=== PATIENT | female | born 1955 | race Caucasian/White ===

== ENCOUNTER 2021-03-12 04:59 | Inpatient (IN) ==
--- NOTE | 2021-02-19 11:14 | PAT Medication Instructions ---
Medication Instructions Date of Service February 19, 2021 Home Medications albuterol sulfate 1 inh INHALATION QID PRN calcium carbonate-vitamin D3 [Calcium 600 + D(3)] 1 cap PO QPM cyanocobalamin (vitamin B-12) 1,000 mcg PO QAM furosemide [Lasix] 20 mg PO QAM insulin glargine [Lantus U-100 Insulin] 25 unit SUBCUT QAM meloxicam 15 mg PO QAM metformin 1,000 mg PO BID milk thistle 1,000 mg PO BID multivitamin 1 tab PO QAM nadolol 20 mg PO QAM omeprazole 20 mg PO QAM repaglinide [Prandin] 4 mg PO BID spironolactone 50 mg PO QAM dulaglutide [Trulicity] 3 mg SUBCUT WK Continue as directed dulaglutide [Trulicity] 3 mg SUBCUT WK ASK your surgeon for instructions meloxicam 15 mg PO QAM STOP taking 2 weeks before surgery (or as soon as possible if surgery is within 2 weeks) milk thistle 1,000 mg PO BID DO NOT take the morning of surgery cyanocobalamin (vitamin B-12) 1,000 mcg PO QAM furosemide [Lasix] 20 mg PO QAM metformin 1,000 mg PO BID multivitamin 1 tab PO QAM repaglinide [Prandin] 4 mg PO BID spironolactone 50 mg PO QAM Take morning of surgery With a small sip of water, OTHERWISE NOTHING TO EAT OR DRINK AFTER MIDNIGHT: albuterol sulfate 1 inh INHALATION QID PRN (use if needed; please bring rescue inhaler with you to hospital day of surgery if possible) nadolol 20 mg PO QAM omeprazole 20 mg PO QAM Take evening before surgery albuterol sulfate 1 inh INHALATION QID PRN (if needed) calcium carbonate-vitamin D3 [Calcium 600 + D(3)] 1 cap PO QPM metformin 1,000 mg PO BID repaglinide [Prandin] 4 mg PO BID Insulin Dependent Diabetic Patients * Test your blood sugar the morning of surgery * If Blood Sugar is GREATER THAN 150, take HALF of your regular dose of: insulin glargine [Lantus U-100 Insulin] take 12 units * If Blood Sugar is LESS THAN 150, DO NOT TAKE ANY: insulin glargine [Lantus U- 100 Insulin] Other Notes If you have any questions please call us at [phone] or [phone] or [phone] or [phone]
--- NOTE | 2021-02-23 11:40 | Anesthesiology Consultation ---
Date of Service February 23, 2021 Assessment & Plan (1) Encounter for pre-operative examination: Chart Review Chart Review: Pending: Refer to Additional Notes / Consult section (pending surgeon ordered PCP clearance and preop Covid testing ) and Patient NOT seen in Pre Admission Testing Awaiting surgeon ordered PCP clearance 02/25/21- will send lab results for review. - Check BSG AM DOS Per PAT appt on 02/23/21, patient denies any recent travel. No known Covid positive contacts or Covid related symptoms. No known Covid infection in the past 90 days. Preop Covid testing 03/05/21= will await results. Educated on importance of self quarantining, social distancing and wearing mask in public both for the patient and household contacts. Teaching & Discussion Pre-Anesthesia Teaching/Discussion Notes: Instructed NPO after midnight before surgery,except medications with 15 cc of water. Medication instructions provided according to the PAT guidelines. History Surgery Operation Date: 03/12/21 07:00 Proposed Procedures p Right Total Shoulder Arthroplasty Darnell Vick M.D. Height/Weight Height: 5 ft Weight: 63.3 kg Allergies Allergy/AdvReac Type Severity Reaction Status Date / Time No Known Allergies Allergy Unknown Verified 02/11/21 13:42 Medications Home Medications Medication Instructions Recorded Confirmed Last Taken albuterol sulfate 1 inh INHALATION QID PRN 09/26/20 02/11/21 Unknown calcium carbonate-vitamin D3 1 cap PO QPM 09/26/20 02/11/21 11/19/20 [Calcium 600 + D(3)] cyanocobalamin (vitamin B-12) 1,000 mcg PO QAM 09/26/20 02/11/21 11/20/20 furosemide [Lasix] 20 mg PO QAM 09/26/20 02/11/21 11/20/20 insulin glargine [Lantus U-100 25 unit SUBCUT QAM 09/26/20 02/11/21 11/20/20 Insulin] meloxicam 15 mg PO QAM 09/26/20 02/11/21 11/20/20 metformin 1,000 mg PO BID 09/26/20 02/11/21 11/20/20 milk thistle 1,000 mg PO BID 09/26/20 02/11/21 11/20/20 08:00 multivitamin 1 tab PO QAM 09/26/20 02/11/21 11/20/20 nadolol 20 mg PO QAM 09/26/20 02/11/21 11/20/20 omeprazole 20 mg PO QAM 09/26/20 02/11/21 11/20/20 repaglinide [Prandin] 4 mg PO BID 09/26/20 02/11/21 11/20/20 08:00 spironolactone 50 mg PO QAM 09/26/20 02/11/21 11/20/20 dulaglutide [Trulicity] 3 mg SUBCUT WK 02/11/21 02/11/21 Unknown Past Medical History Medical History Allergy-induced asthma USES INHALER IN SPRING TIME Diabetes mellitus, type 2 Glucose improved GERD (gastroesophageal reflux disease) Well controlled and stable Glaucoma Hypertension Liver cirrhosis secondary to NEWBERRY Follows with liver specialist every six months- stable Exercise / Class Metabolic Activity II 4-5 Yardwork/Stairs/Walk up hill (one flight of stairs - no chest pain or SOB ) Past Family History Family History Mother Family history of diabetes mellitus Brother Family history of diabetes mellitus Sister Family history of diabetes mellitus Other No family history of adverse response to anesthesia Past Surgical History Surgical History History of cataract surgery RT/LEFT History of cholecystectomy History of colonoscopy History of esophagogastroduodenoscopy (EGD) History of hysterectomy History of repair of rotator cuff LEFT History of right hip replacement History of tooth extraction Past Anesthesia History No Hx of Anesthesia Complications and No Family Hx of Anesthesia Complications History of PONV No Hx of PONV and No Hx of Motion Sickness Social History Smoking Status: Never smoker Hx Alcohol Use: No Hx Substance Use: No Review of Systems Patient denies chest pain, shortness of breath, dyspnea on exertion, cough, wheezing, palpitations. No hx of seizures, stroke, [place], apnea/snoring. No hx of blood clots or blood transfusions Physical Exam Vital Signs VITALS BP 104/50 (manually- denies dizziness or syncope- mild fatigue- has PCP appt on 02/25/21- will follow up with PCP sooner is symptoms occur- encouraged hydration) P 85 TEMP 97.9 SP02 96% RESP 16 Constitutional no acute distress ENMT Mouth: no TMJ clicking Thyromental Distance: < 3.5 Finger Breadths (3.0) Mallampati Class: II Full upper denture Partial bottom denture Neck neck extension not limited Respiratory normal respiratory effort; no respiratory distress Auscultation: lungs clear to auscultation bilaterally; no wheezes Cardiovascular Rate/Rhythm: regular rate and regular rhythm Heart Sounds: no murmur Vessels: no carotid bruit Musculoskeletal Spine: no pain with cervical ROM Extremities: extremities normal to inspection Skin Blisters to lips from being in sun this past weekend Psychiatric Orientation: alert Testing Laboratory Results 02/23/21 11:51 02/23/21 11:51 PT 10.9 Seconds (9.0-12.0) 02/23/21 11:51 INR 1.1 (0.9-1.1) 02/23/21 11:51 APTT 23.4 Seconds (21.0-31.0) 02/23/21 11:51 Hemoglobin A1c 7.5 % (4.5-5.6) H 02/23/21 11:51 Urine Color Yellow 02/23/21 11:51 Urine Appearance Clear (Clear) 02/23/21 11:51 Urine pH 5.0 (4.5-7.5) 02/23/21 11:51 Ur Specific Rand 1.013 (1.000-1.030) 02/23/21 11:51 Urine Protein Negative (Negative) 02/23/21 11:51 Urine Glucose (UA) 1+ (Negative) H 02/23/21 11:51 Urine Ketones Negative (Negative) 02/23/21 11:51 Urine Nitrite Negative (Negative) 02/23/21 11:51 Ur Leukocyte Esterase Trace (Negative) H 02/23/21 11:51 Urine WBC (Auto) 1-5 /hpf (0-5) 02/23/21 11:51 Urine RBC (Auto) 5-10 /hpf (0-4) H 02/23/21 11:51 U Hyaline Cast (Auto) 1-5 /lpf (0-5) 02/23/21 11:51 U Epithel Cells (Auto) 10-20 /lpf (0-5) H 02/23/21 11:51 Urine Bacteria (Auto) Negative (Negative) 02/23/21 11:51 Blood Type B Positive 02/23/21 11:51 Antibody Screen NEGATIVE 02/23/21 11:51 Inform surgeon's office of blood sugar results- will leave to surgeon's discretion on how to proceed (per patient- fasting blood sugars usually 130- 150's) Electrocardiogram Date: 10/01/20 Findings: + NSR @ (69) Normal EKG. Chest X-Ray Date: 10/01/20 Findings: + NAD
[2021-02-23 12:08] LABS: Basophils # (auto) 0.03 K/uL (0-0.2); Basophils % (auto) 0.5 %; Eosinophils # (auto) 0.24 K/uL (0-0.5); Eosinophils % (auto) 3.6 %; Hematocrit (blood only) 36.7 % (37-47); Hemoglobin 12.6 g/dL (12.0-16.0); Immature Granulocytes # (auto) 0.01 K/uL (0.00-0.02); Immature Granulocytes % (auto) 0.2 %; Lymphocytes # (auto) 1.11 K/uL (1.2-3.4); Lymphocytes % (auto) 16.7 %; Mean Corpuscular Hemoglobin 30.8 pg (25-34); Mean Corpuscular Hgb Conc 34.3 g/dL (32-36); Mean Corpuscular Volume 89.7 fL (80-100); Mean Platelet Volume 10.6 fL (7.4-10.4); Monocytes # (auto) 0.55 K/uL (0.11-0.59); Monocytes % (auto) 8.3 %; Neutrophils # (auto) 4.69 K/uL (1.4-6.5); Neutrophils % (auto) 70.7 %; Platelet Count 137 K/uL (130-400); RDW Coefficient of Variation 13.5 % (11.5-14.5); RDW Standard Deviation 44.5 fL (36.4-46.3); Red Blood Count 4.09 M/uL (4.2-5.4); White Blood Count 6.63 K/uL (4.8-10.8)
[2021-02-23 12:11] LABS: Appearance Urine Clear (Clear); Bacteria Urine Automated Negative (Negative); Bilirubin Urine Negative (Negative); Blood Urine Negative (Negative); Color Urine Yellow; Glucose Urine UA 1+ (Negative); Ketones Urine Negative (Negative); Leukocyte Esterase Urine Trace (Negative); Nitrite Urine Negative (Negative); Protein Urine Negative (Negative); Specific Gravity Urine 1.013 (1.000-1.030); Urobilinogen Urine Negative (Negative)
[2021-02-23 12:21] LABS: INR 1.1 (0.9-1.1); Partial Thromboplastin Ratio 0.9; Partial Thromboplastin Time 23.4 Seconds (21.0-31.0); Prothrombin Time 10.9 Seconds (9.0-12.0)
[2021-02-23 12:50] LABS: Estimated Average Glucose 169 mg/dl; Hemoglobin A1C 7.5 % (4.5-5.6)
[2021-02-23 14:42] LABS: Albumin Level 3.5 gm/dl (3.4-5.0); BUN Creatinine Ratio 17.8 (10-20); Calcium 9.2 mg/dl (8.5-10.1); Creatinine Clr Calc Pharmacy 46.9 ml/min; Est GFR (African American) 69.7; Est GFR (Non-African American) 60.1; Potassium 3.8 mmol/L (3.5-5.1)
[2021-02-23 15:12] LABS: Beta-Hydroxybutyrate 1.59 mg/dl (0.2-2.81)
--- NOTE | 2021-03-11 12:24 | History & Physical Report ---
Date of Service March 11, 2021 Assessment & Plan (1) Right rotator cuff tear arthropathy: She again has a chronic, massive, retracted, full-thickness rotator cuff tear. This is an irrepairable rotator cuff tear, and she is developing rotator cuff tear arthropathy. I advised her again that the only viable surgical treatment option for this would be a reverse total shoulder arthroplasty. We did offer her further conservative treatment with another steroid injection, but she declined as the previous injection was minimally effective for her. Of note, she is a diabetic and her last hemoglobin A1c was 7.8, significantly improved from above 9. Advised her that she really needs to get this below 7 for surgery. We will need medical clearance. She does not have any coronary artery disease and is not on any anticoagulants. We will need to schedule her surgery for after February 28 due to her last steroid injection on December 01. We will get her set up for a blueprint CT scan for preoperative planning. Risks, benefits, and alternatives of surgery were explained in detail. The surgical procedure, as well as postoperative recovery and rehabilitation, was also explained in detail. Risks include bleeding; infection; damage to surrounding structures such as nerves, blood vessels, and tendons that run in the area; persistent pain or stiffness; hardware failure; dislocation; brachial plexus palsy; blood clots; or need for further surgery. The patient understands all of this and wishes to proceed with surgery. Preoperative workup was completed today, and informed consent was obtained. Present on Admission?: Yes History of Present Illness Chief Complaint: Right shoulder pain and weakness Primary Care Provider: Mik Rahman MD She returns today for her right shoulder chronic rotator cuff tear with rotator cuff tear arthropathy. She had acute worsening of her pain and weakness in that shoulder with a fall on November 20. I gave her a steroid injection at her last appointment on December 01. She reports that this only gave her about 2 weeks relief of her pain, with only about 50 to 60% relief of that pain. It promptly wore off, and she has had severe return of her pain and weakness. Allergies Allergy/AdvReac Type Severity Reaction Status Date / Time No Known Allergies Allergy Unknown Verified 02/11/21 13:42 Home Medications Medication Instructions Recorded Confirmed Type albuterol sulfate 1 inh INHALATION QID PRN 09/26/20 02/11/21 History calcium carbonate-vitamin D3 1 cap PO QPM 09/26/20 02/11/21 History [Calcium 600 + D(3)] cyanocobalamin (vitamin B-12) 1,000 mcg PO QAM 09/26/20 02/11/21 History furosemide [Lasix] 20 mg PO QAM 09/26/20 02/11/21 History insulin glargine [Lantus U-100 25 unit SUBCUT QAM 09/26/20 02/11/21 History Insulin] meloxicam 15 mg PO QAM 09/26/20 02/11/21 History metformin 1,000 mg PO BID 09/26/20 02/11/21 History milk thistle 1,000 mg PO BID 09/26/20 02/11/21 History multivitamin 1 tab PO QAM 09/26/20 02/11/21 History nadolol 20 mg PO QAM 09/26/20 02/11/21 History omeprazole 20 mg PO QAM 09/26/20 02/11/21 History repaglinide [Prandin] 4 mg PO BID 09/26/20 02/11/21 History spironolactone 50 mg PO QAM 09/26/20 02/11/21 History dulaglutide [Trulicity] 3 mg SUBCUT WK 02/11/21 02/11/21 History Past Med/Surg History Medical History Allergy-induced asthma USES INHALER IN SPRING TIME Diabetes mellitus, type 2 Glucose improved GERD (gastroesophageal reflux disease) Well controlled and stable Glaucoma Hypertension Liver cirrhosis secondary to [place] Follows with liver specialist every six months- stable Surgical History History of cataract surgery RT/LEFT History of cholecystectomy History of colonoscopy History of esophagogastroduodenoscopy (EGD) History of hysterectomy History of repair of rotator cuff LEFT History of right hip replacement History of tooth extraction Family History Mother Family history of diabetes mellitus Brother Family history of diabetes mellitus Sister Family history of diabetes mellitus Other No family history of adverse response to anesthesia Social History Smoking Status: Never smoker Second Hand Exposure: No; Hx Alcohol Use: No Hx Substance Use: No Preferred Language: Cameroonian Staff Assistant Required: No Beliefs That Will Affect Care: None Current Living Situation: Family Current Living Situation Comment: AND SON Feels Safe at Home: Yes Safety Concerns: Feels Safe At This Time Assistive Devices: Denture - Upper Physical Exam Physical Exam: Examination of the right shoulder reveals limitation and weakness of the supraspinatous and infraspinatous. Subscapularis strength is well maintained. She can now actively abduct up to about 80 degrees, significantly improved from 20 degrees at her last appointment. No tenderness to palpation at the acromioclavicular joint. Results & Data ([facility]) Diagnostic Findings MRI of the right shoulder from December 01 was reviewed. It shows an obvious chronic, massive, retracted rotator cuff tear involving the entire supraspinatus and subscapularis tendons, as well as the anterior infraspinatus. The tendon is retracted to the level of the glenoid rim. There is near complete fatty atrophy of the subscapularis muscle belly, and about 75% fatty atrophy of the supraspinatus muscle belly. Infraspinatus muscle looks well-maintained.
[2021-03-12] MEDS ORDERED: LR 15ML/HR IV SCH (06:00)
[2021-03-12] MEDS ORDERED: ceFAZolin 1000MG 1,000 MG/7.5 ML SYR IV SCH (06:00)
[2021-03-12] MEDS ORDERED: METOCLOPRAMIDE HCL 10 MG TABLET PO SCH (06:00)
[2021-03-12] MEDS ORDERED: CeleBREX 200 MG CAP PO SCH (06:00)
[2021-03-12] MEDS ORDERED: TRANEXAMIC ACID / 0.7% NACL 1,000 MG/100 ML BAG IV SCH (06:00)
[2021-03-12] MEDS ORDERED: dexAMETHasone 4 MG TAB PO SCH (06:00)
[2021-03-12] MEDS ORDERED: GABAPENTIN 300 MG CAP PO SCH (06:00)
[2021-03-12] MEDS ORDERED: FAMOTIDINE 20 MG TAB PO SCH (06:00)
[2021-03-12] MEDS ORDERED: ACETAMINOPHEN 500 MG TAB PO SCH (06:00)
[2021-03-12] MEDS ORDERED: BUPIVACAINE 0.5 % 5 MG/1 ML PF 10ML VIAL ONE (06:23)
[2021-03-12] MEDS ORDERED: fentaNYL citrate 100 MCG/2 ML VIAL IV PRN (06:36)
[2021-03-12] MEDS ORDERED: ONDANSETRON INJ 2 MG/ML 2 ML VIAL IV PRN ×2 (06:36→10:29)
[2021-03-12] MEDS ORDERED: ePHEDrine sulfate 50 MG/ML AMP IV PRN (06:36)
[2021-03-12] MEDS ORDERED: ATROPINE SULFATE 0.1 MG/ML 10ML SYR IV PRN (06:36)
[2021-03-12] MEDS ORDERED: MIDAZOLAM HCL 1 MG/ML 2ML VIAL ONE (06:40)
[2021-03-12] MEDS ORDERED: fentaNYL citrate 100 MCG/2 ML VIAL ONE (06:40)
[2021-03-12] MEDS ORDERED: ROPIVACAINE 0.5% 5 MG/ML 30 ML VIAL ONE (06:46)
--- NOTE | 2021-03-12 06:58 | History & Physical Bridge Note ---
Date of Service March 12, 2021 History & Physical Bridge Note I have examined the patient, reviewed the History & Physical and in the interval since the performance of the History & Physical I have noted the following changes of clinical significance: no changes noted
[2021-03-12] MEDS ORDERED: PHENYLEPHRINE HCL 10 MG/ML VIAL ONE (08:09)
[2021-03-12] MEDS ORDERED: LIDOCAINE 2% 2 ML VIAL/AMP(20MG/ML) INFIL ONE (08:09)
[2021-03-12] MEDS ORDERED: ePHEDrine sulfate 50 MG/ML SYR ONE (08:09)
[2021-03-12] MEDS ORDERED: ONDANSETRON INJ 2 MG/ML 2 ML VIAL ONE (08:09)
[2021-03-12] MEDS ORDERED: DEXAMETHASONE SOD INJ 4 MG/ML VIAL ONE (08:09)
[2021-03-12] MEDS ORDERED: PROPOFOL IV EMULSION 10 MG/ML 20 ML VIAL IV ONE (08:09)
--- NOTE | 2021-03-12 08:59 | Post Operative Brief Note ---
Immediate Post Op Note v1 Date of Surgery March 12, 2021 Pre & Post Diagnosis Operation Date: 03/12/21 07:00 Pre-Op Diagnosis: Right Shoulder Rotator Cuff Tear Arthropathy Post-Op Diagnosis: Right Shoulder Rotator Cuff Tear Arthropathy I identified the patient and participated in the time-out.: Yes Procedure Operation Date: 03/12/21 07:00 Actual Procedures p Right Total Shoulder Arthroplasty Reversre(Right) - Kd Vick M.D. Surgeon Kd Vick [facility] Secretary Juan Antonio Vargas PA-C Estimated Blood Loss 75 Findings Consistent with Post-Op Diagnosis
--- NOTE | 2021-03-12 08:59 | Operative Report ---
Post Operative Report Pre & Post Diagnosis Operation Date: 03/12/21 07:00 Pre-Op Diagnosis: Right Shoulder Rotator Cuff Tear Arthropathy Post-Op Diagnosis: Right Shoulder Rotator Cuff Tear Arthropathy I identified the patient and participated in the time-out.: Yes Procedure Operation Date: 03/12/21 07:00 Actual Procedures Right reverse Total Shoulder Arthroplasty (29398) Open biceps tenodesis (34448) - Kd Vick M.D. Surgeon Kd Vick Bicycle Technician Juan Antonio Vargas PA-C Estimated Blood Loss 75 Findings Consistent with Post-Op Diagnosis Specimens None Drains None Anesthesia Type General Regional Complications none Disposition Disposition: Recovery Room Indications Ms. Hart is a 65-year-old female with persistent right shoulder pain and weakness. History, clinical exam, and imaging were consistent with the above diagnosis. Risks, benefits, and alternatives of surgery were explained in detail. The patient understood all this and wished to proceed. Description of Procedure Components Implanted: Tornier Reverse Total Shoulder implants Perform glenoid baseplate: 25mm, 15 degree full wedge with 6.5mm central screw and 5.0mm peripheral screws Glenosphere: 36mm standard Ascend Flex humeral stem: 2B Standard length (70mm) Humeral tray: 1.5mm offset, +0mm thickness Polyethylene insert: 36mm, +6mm thickness Patient was identified in the preoperative holding area. Operative extremity was marked. Regional blockade was given by the Anesthesia Staff. Patient was then brought back to the operating room, and general anesthesia was induced without complication. Appropriate weight-based dose of Ancef was infused intravenously for antibiotic prophylaxis. The patient was then placed in the beachchair position. Right arm was then prepped and draped in a standard sterile fashion using Chlorhexidine prep. A standard deltopectoral incision was made through the skin and subcutaneous tissue. The cephalic vein was identified and retracted medially. Small branches to the deltoid were coagulated as necessary. The clavipectoral fascia was then incised and the subdeltoid space was opened. The rotator cuff was found to be deficient, and I therefore decided to perform a reverse total shoulder arthroplasty as planned preoperatively. The biceps tendon was identified within the bicipital groove and tenodesed at the superior border of the pectoralis tendon with #2 FiberWire suture. The biceps tendon was then divided proximal to the tenodesis site and the rotator interval was opened. The proximal portion of the biceps tendon was excised. The remaining subscapularis tendon was elevated subperiosteally off of the lesser tuberosity. The glenohumeral joint was then dislocated, and large osteophytes were debrided with a ronguer. The humeral head cut was then made in the appropriate inclination and version using the cutting guide. The intramedullary canal of the humerus was then opened with a canal finder. The humeral canal was then sequentially broached to the appropriate size. A protective cap was then placed on top of the humeral trial. I then turned my attention to the glenoid. The proximal stump of the biceps tendon was excised, along with the labrum circumferentially around the glenoid. The Blueprint drill guide was then positioned on the glenoid, and the guidepin was then inserted. The 15 degree angled reamer was then inserted over the guidepin and an reamed to an appropriate depth. The central screw hole was drilled, and appropriate length 6.5mm central screw was selected. The baseplate was then implanted into place according to our preoperative Blueprint plan by tightening down the central screw. A peripheral 5mm nonlocking screw was placed postero-superiorly first for additional compression of the baseplate, and then additional locking 5 mm peripheral screws were placed to complete fixation of the baseplate. Glenosphere was then impacted and secured. A trial humeral tray and insert were placed on the trial humeral stem, and a trial reduction was carried out. Once I achieved acceptable joint stability and range of motion with the trial implants, the final humeral implants were assembled on the back table and then impacted into position. I then took the shoulder through full range of motion to ensure good stability and acceptable motion. Wound was then copiously irrigated with sterile saline. Deep fascia was closed with 0 V-lock suture. Subcutaneous tissue was closed with 2-0 V-lock, and skin was closed with 3-0 V-lock. Skin was then sealed with Dermabond. Sterile dressings were then applied with a waterproof silver-impregnated dressing, and the arm was placed into a sling. The patient was awakened from anesthesia and taken to the Post Anesthesia Care Unit in stable condition. There were no immediate complications from the procedure. I was present and scrubbed for the entire procedure, with the exception of final skin closure and dressing application. Due to the complex nature of the procedure, the entire surgery was performed with the operational assistance of Juan Antonio Vargas PA-C. The anesthetic assistant, under direct supervision, was involved in the performance of all aspects of the surgical procedure including patient positioning, tissue retraction, hemostasis, wound closure, and dressing application. I attest to the content of the Intraoperative Record and any orders documented therein. Any exceptions are noted below.
--- NOTE | 2021-03-12 09:34 | XRay Report ---
XR shoulder RT min 2V routine CLINICAL HISTORY: Post shoulder surgery COMPARISON STUDY: Right shoulder 11/12/2020. FINDINGS: Status post a reverse right total shoulder arthroplasty. The hardware appears intact. No fr acture or dislocation. IMPRESSION: Status post reverse right total shoulder arthroplasty. No evidence for hardware complica tion. ACT 112: Negative or not required by law. Electronically signed by: Tahir Smith M.D. 03/12/2021 9:33 AM
--- NOTE | 2021-03-12 10:08 | Anesthesiology Progress Note ---
Date of Service March 12, 2021 Anesthesia Post Procedure Vital Signs Vital Signs: Temp Pulse Pulse Resp BP Pulse Ox 03/12/21 10:00 97.5 F L 84 14 95/51 L 97 03/12/21 09:50 84 14 97/58 L 99 03/12/21 09:40 85 16 99/56 L 100 03/12/21 09:30 91 H 20 114/52 L 100 03/12/21 09:20 87 16 104/57 L 100 03/12/21 09:17 96.8 F L 87 16 99/56 L 98 03/12/21 05:20 98.1 F 88 18 136/79 97 Transfer of Care Handoff Completed per policy Notes Mental Status: alert / awake / arousable and participated in evaluation Patient Amnestic to Procedure: Yes Nausea / Vomiting: adequately controlled Pain: adequately controlled Airway Patency, RR, SpO2: stable & adequate BP & HR: stable & adequate Hydration State: stable & adequate Anesthetic Complications: no major complications apparent and Pt Satisfied with anesthetic care
[2021-03-12] MEDS ORDERED: bisacodyL 10 MG SUPP PR PRN (10:29)
[2021-03-12] MEDS ORDERED: SODIUM CHLORIDE 0.9% 1000ML 1,000 ML IV SCH (10:29)
[2021-03-12] MEDS ORDERED: diphenhydrAMINE Capsule 25 MG CAP PO PRN (10:29)
[2021-03-12] MEDS ORDERED: ALBUTEROL HFA 8 GM INHALER INH PRN (10:29)
[2021-03-12] MEDS ORDERED: METOCLOPRAMIDE HCL INJ 5 MG/ML 2 ML VIAL IV PRN (10:29)
[2021-03-12] MEDS ORDERED: MAGNESIUM HYDROXIDE SUSP 30 ML UDC PO PRN (10:29)
[2021-03-12] MEDS ORDERED: NON-FORMULARY MEDICATION (Dulaglutide [Trulicity] 3 mg/0.5 mL Pen Injector) SQ SCH (10:29)
[2021-03-12] MEDS ORDERED: NALOXONE HCL 0.4 MG/1 ML VIAL/CARP IV PRN (10:29)
[2021-03-12] MEDS ORDERED: PHARMACY GLYCEMIC MGMT CONSULT PRN (11:31)
[2021-03-12] MEDS ORDERED: NovoLIN-N (NPH) PER UNIT CHARGE SQ SCH (12:30)
[2021-03-12] MEDS ORDERED: INSULIN GLARGINE SOLOSTAR 100 UNITS/ML 3 ML PEN SC SCH (12:30)
[2021-03-12] MEDS: INSULIN ASPART 100 UNITS/ML 3 ML PEN SC SCH ×3 (13:22→20:52)
[2021-03-12] MEDS: ACETAMINOPHEN 500 MG TAB PO SCH ×2 (13:36→18:05)
[2021-03-12] MEDS: IBUPROFEN 600 MG TAB PO SCH ×2 (15:00→20:54)
--- NOTE | 2021-03-12 15:47 | Pharmacy Report ---
Pharmacy Glycemic Short Note 2 - Date of Service March 12, 2021 - Glycemic Short BSG Results (Last 24 hours): 03/12/21 03/12/21 03/12/21 05:16 09:19 11:55 POC Glucose 114 H 119 H 200 H OUTPATIENT ANTIDIABETIC REGIMEN: * metformin 1000mh BIDM * Repaglinide 4mg BID * Trulicity 3mg SQ weekly * A1c: 7.5% ASSESSMENT: * Patient's preop blood sugar 112, post op 119 and lunchtime 200 mg/dL. They did receive dexamethasone 8mg PO in the OR. A one time order of NPH (0.25 units/kg) will be ordered today to cover the steroid effects. Will continue with Lantus home dose as well and a high stress NovoLog scale. Will add overnight checks. * Patient is tolerating a diet PLAN FOR INPATIENT GLYCEMIC CONTROL: * Hold outpatient oral diabetes medications * Basal insulin * Lantus 20 units SQ X 1 * NPH 15 units SQ today X 1 * Bolus insulin * NovoLog per scale ACHS or Q6hrs while NPO * Goal Range: Low 110 mg/dL - High 140 mg/dL * Correction Factor: 25 mg/dL/unit * Nutritional / Prandial insulin per carb ratio of 1 unit per 8 grams CHO consumed
[2021-03-12] MEDS ORDERED: metFORMIN HCL 500 MG TAB PO SCH (17:00)
[2021-03-12] MEDS: ceFAZolin 1000MG 1,000 MG/7.5 ML SYR IV SCH (17:53)
--- NOTE | 2021-03-12 18:40 | Orthopedic Progress Note ---
Date of Service March 12, 2021 Assessment & Plan (1) Right rotator cuff tear arthropathy: Postoperative day 0 status post right reverse total shoulder arthroplasty doing very well. Antibiotics x24 hours. May do active range of motion as tolerated once her nerve block wears off. No resisted elbow flexion or resisted forearm supination. Plan for likely discharge home tomorrow. Follow-up in orthopedics clinic in 10 to 14 days. Admission and Anticipated Discharge Date Admission Date: March 12, 2021 Subjective Postop check. Patient doing very well. Denies any pain in her shoulder. Eating and drinking well without any nausea or vomiting. Nerve block is just starting to wear off, with a little bit of motion in her fingertips. Physical Exam Physical Exam: Right shoulder dressings clean, dry, and intact. Results & Data ([facility]) Vital Signs (Past 12 Hours) Vital Signs Temp Pulse Pulse Resp BP Pulse Ox 03/12/21 16:12 36.9 C 87 17 100/56 L 93 03/12/21 13:35 36.8 C 86 17 91/56 L 93 03/12/21 12:36 36.8 C 92 H 17 99/61 L 90 03/12/21 11:14 36.8 C 81 16 94/57 L 97 03/12/21 10:55 36.6 C 82 14 100/62 97 03/12/21 10:25 36.4 C L 84 14 93/56 L 96 03/12/21 10:10 93 H 12 99/55 L 100 03/12/21 10:00 36.4 C L 84 14 95/51 L 97 03/12/21 09:50 84 14 97/58 L 99 03/12/21 09:40 85 16 99/56 L 100 03/12/21 09:30 91 H 20 114/52 L 100 03/12/21 09:20 87 16 104/57 L 100 03/12/21 09:17 36.0 C L 87 16 99/56 L 98
[2021-03-12] MEDS: DOCUSATE SODIUM 100 MG CAP PO SCH (20:54)
[2021-03-12] MEDS ORDERED: REPAGLINIDE 1 MG TAB PO SCH (21:00)
[2021-03-12] MEDS ORDERED: NON-FORMULARY MEDICATION (Milk Thistle 500 mg Capsule) PO SCH (21:00)
[2021-03-12] MEDS ORDERED: CALCIUM 600MG + VIT D 400 IU TAB PO SCH (21:00)
[2021-03-13] MEDS: INSULIN ASPART 100 UNITS/ML 3 ML PEN SC SCH ×4 (00:20→12:44)
[2021-03-13] MEDS: ceFAZolin 1000MG 1,000 MG/7.5 ML SYR IV SCH (00:20)
[2021-03-13] MEDS: ACETAMINOPHEN 500 MG TAB PO SCH ×3 (00:21→11:46)
[2021-03-13] MEDS: IBUPROFEN 600 MG TAB PO SCH ×2 (03:31→09:14)
[2021-03-13] MEDS: oxyCODONE HCL IR 5 MG TAB (IMMEDIATE RELEASE) PO PRN ×2 (03:31→11:41)
--- NOTE | 2021-03-13 08:06 | Orthopedic Progress Note ---
Date of Service March 13, 2021 Assessment & Plan (1) Status post reverse arthroplasty of right shoulder: Admission and Anticipated Discharge Date Admission Date: March 12, 2021 65 yo female stable POD #1 s/p right reverse TSA 1. Med management 2. DVT prophylaxis- ASA, SCDs 3. PT/OT 4. D/C planning- home w/ OPPT Subjective Pt resting in bed, pain controlled, denies complaints Physical Exam Physical Exam: Silverlon dressing in place, fingers mobile, NVI Results & Data ([facility]) Vital Signs (Past 12 Hours) Vital Signs Temp Pulse Pulse Resp BP Pulse Ox 03/13/21 07:40 36.9 C 85 13 102/60 97 03/13/21 03:30 36.6 C 85 16 108/66 97 03/12/21 23:05 36.5 C 81 16 101/59 L 94 Laboratory Results 03/13/21 03/13/21 03/13/21 Range/Units 05:15 03:28 00:02 POC Glucose 200 H 233 H (70-99) mg/dl Hepatitis C Ab Screen Pending 03/12/21 03/12/21 03/12/21 Range/Units 20:28 17:13 11:55 POC Glucose 297 H 284 H 200 H (70-99) mg/dl Hepatitis C Ab Screen 03/12/21 Range/Units 09:19 POC Glucose 119 H (70-99) mg/dl Hepatitis C Ab Screen
[2021-03-13] MEDS ORDERED: MULTIVITAMIN TAB PO SCH (09:00)
[2021-03-13] MEDS ORDERED: LANTUS PER UNIT CHARGE SQ SCH (09:00)
[2021-03-13] MEDS ORDERED: CYANOCOBALAMIN 500 MCG TABLET (VITAMIN B-12) PO SCH (09:00)
[2021-03-13] MEDS ORDERED: INSULIN GLARGINE SOLOSTAR 100 UNITS/ML 3 ML PEN SC SCH (09:00)
[2021-03-13] MEDS ORDERED: PANTOprazole 40 MG TAB PO SCH (09:00)
[2021-03-13] MEDS: DOCUSATE SODIUM 100 MG CAP PO SCH (09:14)
[2021-03-13] MEDS: FUROSEMIDE 20 MG TAB PO SCH ×2 (09:14→10:34)
[2021-03-13] MEDS: nadoloL 40 MG TAB PO SCH ×2 (09:15→10:35)
[2021-03-13] MEDS: SPIRONOLACTONE 25 MG TAB PO SCH ×2 (09:16→10:35)
--- NOTE | 2021-03-13 11:06 | Pharmacy Report ---
Pharmacy Glycemic Short Note 2 - Date of Service March 13, 2021 - Glycemic Short BSG Results (Last 24 hours): 03/12/21 03/12/21 03/12/21 11:55 17:13 20:28 POC Glucose 200 H 284 H 297 H 03/13/21 03/13/21 03/13/21 00:02 03:28 08:11 POC Glucose 233 H 200 H 182 H OUTPATIENT ANTIDIABETIC REGIMEN: * metformin 1000mh BIDM * Repaglinide 4mg BID * Trulicity 3mg SQ weekly * A1c: 7.5% ASSESSMENT: 03/13: * BSGs elevated in the mid 200s last evening, but did trend down this morning. Patient received 49 units of insulin yesterday, 35 of which were basal. Preop dex effects should start to wear off today. Will resume home lantus dose this morning, but keep tighter novolog scale for now until steroid effects wear off. Patient is tolerating a diet. 03/12 * Patient's preop blood sugar 112, post op 119 and lunchtime 200 mg/dL. They did receive dexamethasone 8mg PO in the OR. A one time order of NPH (0.25 units/kg) will be ordered today to cover the steroid effects. Will continue with Lantus home dose as well and a high stress NovoLog scale. Will add overnight checks. * Patient is tolerating a diet PLAN FOR INPATIENT GLYCEMIC CONTROL: * Hold outpatient oral diabetes medications * Basal insulin * Lantus 25 units SQ qam * Bolus insulin * NovoLog per scale ACHS or Q6hrs while NPO * Goal Range: Low 110 mg/dL - High 140 mg/dL * Correction Factor: 20 mg/dL/unit * Nutritional / Prandial insulin per carb ratio of 1 unit per 6 grams CHO consumed
[2021-03-13] MEDS ORDERED: GLUCAGON FOR INJ 1 MG VIAL IM PRN (12:30)
[2021-03-13] MEDS ORDERED: GLUCOSE 40% GEL 15 GM TUBE PO PRN (12:30)
[2021-03-13] MEDS ORDERED: GLUCOSE 10 TABS/TUBE PO PRN (12:30)
[2021-03-13] MEDS ORDERED: CARBOHYDRATES FOR HYPOGLYCEMIA PO PRN (12:30)
[2021-03-13] MEDS ORDERED: DEXTROSE 50% 50 ML SYRINGE IV PRN (12:30)
--- NOTE | 2021-03-31 16:53 | Discharge Summary ---
Date of Service March 31, 2021 Admission HPI Per Admitting Provider She returns today for her right shoulder chronic rotator cuff tear with rotator cuff tear arthropathy. She had acute worsening of her pain and weakness in that shoulder with a fall on November 20. I gave her a steroid injection at her last appointment on December 01. She reports that this only gave her about 2 weeks relief of her pain, with only about 50 to 60% relief of that pain. It promptly wore off, and she has had severe return of her pain and weakness. Principal Diagnosis Right shoulder rotator cuff tear arthropathy Discharge Data Allergies Allergy/AdvReac Type Severity Reaction Status Date / Time No Known Allergies Allergy Unknown Verified 03/12/21 05:26 Procedures Performed Operation Date: 03/12/21 07:00 Actual Procedures p Right Total Shoulder Arthroplasty Reversre(Right) - Kd Vick M.D. Ordered Studies 03/12/21 05:00 US - OR guided needle placemen Routine Hospital Course (1) Right rotator cuff tear arthropathy: Patient underwent a right reverse total shoulder arthroplasty on the date of admission. Patient tolerated the procedure well and was transferred up to the general orthopedic surgery floor in stable condition. Perioperative antibiotic coverage was initiated, and continued for 24 hours postoperatively. DVT prophylaxis was initiated consisting of SCDs and aspirin 325 mg daily. Perioperative pain control regimen was transitioned to strictly oral pain medications by postoperative day 1. On postoperative day 1 the patient was doing very well. Pain was well controlled, and patient was mobilizing well with therapy. Patient was determined be safe and ready for discharge to home. Total Time Total Time Spent Total Time Spent (In Minutes): 15 Discharge Plan Discharge Items Patient Disposition: Home - Self-Care Reason For Visit: Right Shoulder Rotator Cuff Tear Arthropathy Discharge Diagnosis: Right shoulder rotator cuff tear arthropathy Activity: Per Instructions section Non-emergency contact: Surgeon Call non-emergency contact if: your pain is not controlled, your temperature is above 101.5, your wound has increased redness and your wound has increased drainage Follow-up/Referrals: Mik Rahman MD [Primary Care Provider] - Kd Vcik M.D. [Physician] - Diet: Regular Addtl Attending Provider Instructions: Things to Watch Out For -Go to the Emergency Room if you have sudden onset of nausea, vomiting, chest pain, shortness of breath, or uncontrollable pain. -Call the clinic or go to the Emergency Room if you have a sudden increase in the amount of wound drainage or the drainage becomes thick, yellow or green, or foul-smelling. -For routine questions, call the clinic at [phone] during regular business hours (8am-5pm). For urgent issues after regular business hours, you may call the clinic to be connected to the on-call physician. Dressings -A special waterproof, silver-impregnated dressing was placed on your shoulder. Keep this dressing in place for 1 week after surgery. You may shower with the waterproof dressing in place, but do not soak the dressing in the bathtub or pool. -One week after surgery, you may remove the waterproof dressing. You may continue to shower, and let water run BRIEFLY over the incision, but do not soak the incision in the bathtub or pool for 2 weeks. You may also gently clean the incision with mild soap and water; pat the incision dry after cleaning-do not rub the incision. Apply a new dressing daily thereafter. Shoulder Exercises -Keep your operative shoulder in the sling for comfort, except as detailed below. -You should come out of the sling 4-5 times a day for passive pendulum exercises: lean over and swing your arm in a circular pattern. -You should also do active-assisted forward flexion exercises: use your opposite hand to lift your operative arm forward to 90 degrees. -Do not flex your elbow (curl motion) or supinate your forearm (rotating palm up) against resistance. -Do not use your arm to push yourself up out of bed or up from a seated position. Ice Pack -You may use an ice pack for pain relief. You should use it 20-30 minutes at a time. Place a towel between the ice pack and your skin to prevent frostbite. -You should use the ice pack fairly regularly for the first 1-2 weeks after surgery to help reduce pain and inflammation. -About 2 weeks after your surgery, you should start using heat to loosen up your shoulder prior to doing your stretching exercises, then use the cooling sleeve after your exercises are complete to reduce swelling and pain. Pain Medicines -Your prescriptions for pain medications have already been sent to the pharmacy on file at [facility]. -You have been prescribed an anti-inflammatory (Motrin/ibuprofen) and a non- narcotic pain medicine (Tylenol/acetaminophen). These are your primary pain medications. Take them each every 6 hours as instructed. It is recommended that you stagger these medicines every 3 hours (i.e. take ibuprofen at 8:00 am, then acetaminophen at 11:00 am, then ibuprofen at 2:00 pm, etc) -DO NOT take any additional anti-inflammatories (Advil, Aleve/naproxen, Mobic/meloxicam, Celebrex) or any additional Tylenol/acetaminophen products with these prescribed medications. -You have also been prescribed an additional narcotic pain medication (oxycodone). Take this medicine ONLY for breakthrough pain not controlled by the ibuprofen and acetaminophen. -Do not drive or operate heavy machinery while taking the narcotic medication. -Common side effects of narcotic pain medicines include itching, nausea, c onstipation, and feeling "loopy". However, if you develop a rash or hives, stop taking the medicine and call the clinic. If you develop swelling in your throat or difficulty breathing, go to the Emergency Room or call 911 IMMEDIATELY. -You may take over the counter stool softeners if needed for constipation. Aspirin -Take a full strength (325mg) aspirin every day for 4 weeks (28 days) to prevent blood clots. -If you were taking a baby aspirin (81mg) prior to surgery, you may resume taking this 81mg dose after you complete the 28-day course of the 325mg strength dose; do not take the 325mg dose in addition to your 81mg dose. -Be aware that you will bruise easier while taking Aspirin; this is normal. However, if you develop a significantly large area of swelling after an injury, or have a cut that will not stop bleeding, call the clinic or go to the Emergency Room immediately. Pending Studies at Discharge: No Stand-Alone Forms: My [facility], Opioid Pain Management Medications and DC Order Prescriptions: Continued multivitamin Tablet 1 tab PO QAM RF: 0 metformin 500 mg Tablet 1,000 mg PO BID RF: 0 repaglinide [Prandin] 2 mg Tablet 4 mg PO BID RF: 0 Lantus U-100 Insulin 100 unit/mL Solution 25 unit SUBCUT QAM RF: 0 milk thistle 500 mg Capsule 1,000 mg PO BID RF: 0 nadolol 20 mg Tablet 20 mg PO QAM RF: 0 omeprazole 20 mg Capsule,Delayed Release(Dr/Ec) 20 mg PO QAM RF: 0 furosemide [Lasix] 20 mg Tablet 20 mg PO QAM RF: 0 albuterol sulfate 90 mcg/actuation Hfa Aerosol Inhaler 1 inh INHALATION QID PRN (Reason: SHORT OF BREATH) RF: 0 spironolactone 50 mg Tablet 50 mg PO QAM RF: 0 Calcium 600 + D(3) 600 mg calcium- 200 unit Capsule 1 cap PO QPM RF: 0 cyanocobalamin (vitamin B-12) 1,000 mcg Capsule 1,000 mcg PO QAM RF: 0 Trulicity 3 mg/0.5 mL Pen Injector 3 mg SUBCUT WK RF: 0 Discontinued meloxicam 15 mg Tablet 15 mg PO QAM RF: 0 Discharge Orders: Discharge Order (Routine); Ordered 03/13/21 Ordered By: Juan Antonio Powell/Other Patient Handouts: Managing Type 2 Diabetes, A1C Admission Data Admit Date/Time: 03/12/21 09:24 Attending Provider: Kd Vick Admit Provider: Kd Vick Primary Care Provider: Mik Rahman Other Interventions: Discharge Summary Assessment (RN) Last Done: 03/13/21 08:15
== END 2021-03-13 13:25 | disposition home or self-care (01) | DRG 483 ==
LOC: ASU 04:59 → 3E 09:24